=== PATIENT | female | born 1975 | race Caucasian/White ===

== ENCOUNTER → 2016-08-25 | Outpatient (CLI) | payer OTHER ==
--- NOTE | 2016-08-25 14:05 | DIAGNOSTIC IMAGING REPORT ---
PROCEDURE: US ABDOMEN ULTRASOUND-COMPLETE INDICATION: ABD PAIN, initial encounter TECHNIQUE: Joiner scale and color Doppler sonographic images of the abdomen were obtained. COMPARISON: None. FINDINGS: Normal liver and spleen. Normal gallbladder and common bile duct (3.2 mm). Negative Watters's sign. Pancreas normal as visualized. The aorta and IVC are patent. Normal hepatopetal flow. Normal kidneys. Right kidney measures 10.9 cm and left kidney 12.4 cm. Ultrasound of the right lower quadrant demonstrates no evidence of a dilated viscus, mass or inflammatory change. IMPRESSION: 1. Normal abdominal ultrasound
--- NOTE | 2016-08-25 14:11 | DIAGNOSTIC IMAGING REPORT ---
PROCEDURE: US COMPLETE PELVIC W/TRANSVAG INDICATION: Right-sided pelvic pain, initial encounter TECHNIQUE: Transabdominal and endovaginal perez scale and color Doppler sonographic images of the female pelvis were obtained. COMPARISON: Pelvic ultrasound 11/16/2003. FINDINGS: TRANSABDOMINAL SCANS: Normal kidneys. TRANSVAGINAL SCANS: The uterus measures 11.2 x 5.8 x 6.3 cm. Prominent Nabothian cysts. Myometrium is unremarkable. Endometrium measures 11.5 mm. Left ovary measures 2.2 x 1.5 x 2.8 cm. Right ovary measures 2.5 x 2 x 2.3 cm with a 2.5 cm corpus luteum cyst. There is vascular flow to both ovaries. There is no free fluid. IMPRESSION: 1. 2.5 cm right ovarian corpus luteum cyst
== END ==
LOC: US SRH 12:41
DX: N83.11 Corpus luteum cyst of right ovary (principal); R10.9 Unspecified abdominal pain